=== PATIENT | female | born 1975 | race Caucasian/White ===

== ENCOUNTER → 2016-12-18 | Outpatient (REF) | LOC: ZLAB.WCH 18:08 | DX: Z01.89 Encounter for other specified special examinations (principal) ==

== ENCOUNTER → 2022-10-02 | Outpatient (CLI) | payer BC | LOC: MHCPAIN 10:38 | DX: M54.50 Low back pain, unspecified (principal); M47.895 Other spondylosis, thoracolumbar region; M79.2 Neuralgia and neuritis, unspecified | CPT/HCPCS: G0463 ==